=== PATIENT | male | born 1975 | race Caucasian/White ===

== ENCOUNTER 2017-02-21 13:32 | Emergency (ER) | payer BC, OTHER ==
[2017-02-21] MEDS ORDERED: SODIUM CHLORIDE 0.9% 500 ML IV STA (13:54)
--- NOTE | 2017-02-21 14:18 | ED ---
General Adult HPI - General Chief complaint: Dizziness Stated complaint: Dizziness Time Seen by Provider: 02/21/17 13:46 Source: patient, RN notes reviewed Mode of arrival: wheelchair Limitations: no limitations - History of Present Illness Initial comments: 41-year-old male presents emergency Department with chief complaint of dizziness. Patient states that he was looking at his phone in which she was standing up at the time. He states that at 11:55 AM this morning he became dizzy and felt lightheaded and had some visual changes. Patient states he sat down at this time and states that he initially felt better but symptoms have returned shortly after. Patient states that he felt that he just needed to eat and went to eat lunch and did not feel much better. Patient states his still feels weak all over and slightly off. Patient states that symptoms are worse with movement. Patient has no cardiac history. Patient states he has been told he had high blood pressure the past but no official diagnosis denies history of diabetes, hyperlipidemia. Patient is a former smoker. Patient states he has had some chest discomfort with also states she's been having left shoulder pain since recent started working out again. Patient states he did feel slightly different. - Related Data Previous Rx's Medication Instructions Recorded Meclizine [Antivert] 25 mg PO TID PRN #15 tab 02/21/17 Allergies Allergy/AdvReac Type Severity Reaction Status Date / Time iodine Allergy Rash/Hives Verified 02/21/17 14:04 latex Allergy Rash/Hives Verified 02/21/17 14:04 Review of Systems ROS Statement: Those systems with pertinent positive or pertinent negative responses have been documented in the HPI. ROS Other: All systems not noted in ROS Statement are negative. Past Medical History Past Medical History: No Reported History History of Any Multi-Drug Resistant Organisms: None Reported Additional Past Surgical History / Comment(s): Nasal surg., jaw surgery Past Psychological History: No Psychological Hx Reported Smoking Status: Former smoker Past Alcohol Use History: Occasional Past Drug Use History: None Reported General Exam Limitations: no limitations General appearance: alert, in no apparent distress Head exam: Present: atraumatic, normocephalic, normal inspection Eye exam: Present: normal appearance, PERRL, EOMI. Absent: scleral icterus, conjunctival injection, periorbital swelling ENT exam: Present: normal exam, normal oropharynx, mucous membranes moist, TM's normal bilaterally, normal external ear exam Neck exam: Present: normal inspection, full ROM. Absent: tenderness, meningismus, lymphadenopathy Respiratory exam: Present: normal lung sounds bilaterally. Absent: respiratory distress, wheezes, rales, rhonchi, stridor Cardiovascular Exam: Present: regular rate, normal rhythm, normal heart sounds. Absent: systolic murmur, diastolic murmur, rubs, gallop, clicks GI/Abdominal exam: Present: soft, normal bowel sounds. Absent: distended, tenderness, guarding, rebound, rigid Extremities exam: Present: normal inspection, full ROM, normal capillary refill. Absent: tenderness, pedal edema, joint swelling, calf tenderness Back exam: Present: full ROM, muscle spasm. Absent: tenderness, paraspinal tenderness, vertebral tenderness Neurological exam: Present: alert, oriented X3, CN II-XII intact, reflexes normal. Absent: motor sensory deficit Skin exam: Present: warm, dry, intact, normal color. Absent: rash Course Vital Signs 02/21/17 02/21/17 13:37 15:24 Temperature 98.0 F 97.7 F Pulse Rate 96 86 Respiratory 20 18 Rate Blood Pressure 130/84 133/82 O2 Sat by Pulse 100 100 Oximetry EKG Findings - EKG Comments: EKG Findings:: EKG performed at 13:51 normal sinus rhythm with rate of 78, LA 132, QRS duration 82, QTC is QTC 370/430 Medical Decision Making - Medical Decision Making 41-year-old male present emergency department with chief complaint of dizziness. Patient states she does feel much improved after some IV fluids. Patient's lab work didn't reveal mild elevation kidney function. Patient has no history of this. Patient's EKG, cardiac workup within normals. Patient states he is asymptomatic. Patient states will follow-up with primary care physician return parameters discussed. Patient be discharged with some Antivert if needed. - Lab Data Result diagrams: 02/21/17 14:12 02/21/17 14:12 Lab Results 02/21/17 02/21/17 02/21/17 Range/Units 14:12 14:12 14:12 WBC 9.1 (3.8-10.6) k/uL RBC 5.55 (4.30-5.90) m/uL Hgb 16.7 (13.0-17.5) gm/dL Hct 49.5 (39.0-53.0) % MCV 89.1 (80.0-100.0) fL MCH 30.1 (25.0-35.0) pg MCHC 33.8 (31.0-37.0) g/dL RDW 13.1 (11.5-15.5) % Plt Count 245 (150-450) k/uL Neutrophils % 72 % Lymphocytes % 20 % Monocytes % 4 % Eosinophils % 2 % Basophils % 0 % Neutrophils # 6.5 (1.3-7.7) k/uL Lymphocytes # 1.8 (1.0-4.8) k/uL Monocytes # 0.4 (0-1.0) k/uL Eosinophils # 0.2 (0-0.7) k/uL Basophils # 0.0 (0-0.2) k/uL PT 10.5 (9.0-12.0) sec INR 1.0 (<1.1) APTT 24.3 (22.0-30.0) sec Sodium 141 (137-145) mmol/L Potassium 3.9 (3.5-5.1) mmol/L Chloride 102 (98-107) mmol/L Carbon Dioxide 28 (22-30) mmol/L Anion Gap 11 mmol/L BUN 15 (9-20) mg/dL Creatinine 1.33 H (0.66-1.25) mg/dL Est GFR (MDRD) Af Amer >60 (>60 ml/min/1.73 sqM) Est GFR (MDRD) Non-Af 59 (>60 ml/min/1.73 sqM) Glucose 129 H (74-99) mg/dL Calcium 9.3 (8.4-10.2) mg/dL Total Bilirubin 0.6 (0.2-1.3) mg/dL AST 21 (17-59) U/L ALT 34 (21-72) U/L Alkaline Phosphatase 93 (38-126) U/L Troponin I (0.000-0.034) ng/mL Total Protein 7.8 (6.3-8.2) g/dL Albumin 4.3 (3.5-5.0) g/dL 02/21/17 Range/Units 14:12 WBC (3.8-10.6) k/uL RBC (4.30-5.90) m/uL Hgb (13.0-17.5) gm/dL Hct (39.0-53.0) % MCV (80.0-100.0) fL MCH (25.0-35.0) pg MCHC (31.0-37.0) g/dL RDW (11.5-15.5) % Plt Count (150-450) k/uL Neutrophils % % Lymphocytes % % Monocytes % % Eosinophils % % Basophils % % Neutrophils # (1.3-7.7) k/uL Lymphocytes # (1.0-4.8) k/uL Monocytes # (0-1.0) k/uL Eosinophils # (0-0.7) k/uL Basophils # (0-0.2) k/uL PT (9.0-12.0) sec INR (<1.1) APTT (22.0-30.0) sec Sodium (137-145) mmol/L Potassium (3.5-5.1) mmol/L Chloride (98-107) mmol/L Carbon Dioxide (22-30) mmol/L Anion Gap mmol/L BUN (9-20) mg/dL Creatinine (0.66-1.25) mg/dL Est GFR (MDRD) Af Amer (>60 ml/min/1.73 sqM) Est GFR (MDRD) Non-Af (>60 ml/min/1.73 sqM) Glucose (74-99) mg/dL Calcium (8.4-10.2) mg/dL Total Bilirubin (0.2-1.3) mg/dL AST (17-59) U/L ALT (21-72) U/L Alkaline Phosphatase (38-126) U/L Troponin I <0.012 (0.000-0.034) ng/mL Total Protein (6.3-8.2) g/dL Albumin (3.5-5.0) g/dL Disposition Clinical Impression: Dizziness Disposition: HOME SELF-CARE Condition: Stable Instructions: Dizziness (ED) Additional Instructions: Please return to the Emergency Department if symptoms worsen or any other concerns. Prescriptions: Meclizine [Antivert] 25 mg PO TID PRN #15 tab PRN Reason: Vertigo Time of Disposition: 15:38
[2017-02-21 14:32] LABS: Basophils % (A) 0 %; CH 31.2; CHCM 35.1; Eosinophils # (A) 0.2 k/uL (0-0.7); Eosinophils % (A) 2 %; HCT 49.5 % (39.0-53.0); HDW 2.52; HGB 16.7 gm/dL (13.0-17.5); Luc # (Auto) 0.16; Luc % (Auto) 2; Lymphocytes # (A) 1.8 k/uL (1.0-4.8); Lymphocytes % (A) 20 %; MCH 30.1 pg (25.0-35.0); MCHC 33.8 g/dL (31.0-37.0); MCV 89.1 fL (80.0-100.0); Mean Platelet Volume 7.1; Monocytes # (A) 0.4 k/uL (0-1.0); Monocytes % (A) 4 %; Neutrophils # (A) 6.5 k/uL (1.3-7.7); Neutrophils % (A) 72 %; RBC 5.55 m/uL (4.30-5.90); RDW 13.1 % (11.5-15.5); WBC 9.1 k/uL (3.8-10.6); WBC (Perox) 9.19
[2017-02-21 14:40] LABS: Partial Thromboplastin Time 24.3 sec (22.0-30.0); Prothrombin Time 10.5 sec (9.0-12.0)
[2017-02-21 14:44] LABS: ALT 34 U/L (21-72); AST 21 U/L (17-59); Alkaline Phosphatase 93 U/L (38-126); Anion Gap 11 mmol/L; Blood Urea Nitrogen 15 mg/dL (9-20); Calcium 9.3 mg/dL (8.4-10.2); Carbon Dioxide 28 mmol/L (22-30); Chloride 102 mmol/L (98-107); Glucose 129 mg/dL (74-99); Non-African American GFR(MDRD) 59 (>60 ml/min/1.73 sqM); Potassium 3.9 mmol/L (3.5-5.1); Sodium 141 mmol/L (137-145); Total Bilirubin 0.6 mg/dL (0.2-1.3); Total Protein 7.8 g/dL (6.3-8.2)
--- NOTE | 2017-02-21 15:10 | XR ---
EXAMINATION TYPE: XR chest 2V DATE OF EXAM: 02/21/2017 2:54 PM COMPARISON: 12/04/2015 HISTORY: Chest pain TECHNIQUE: Frontal and lateral views of the chest are obtained. FINDINGS: Heart and mediastinum are normal. Lungs are clear. Diaphragm is normal. There are chest le ads. Bony thorax is intact. IMPRESSION: Normal chest. No change.
[2017-02-21 15:29] VITALS: BP 133/82; PULSE 86; RESP 18; TEMP 97.7
== END 2017-02-21 15:55 | disposition home or self-care (01) ==
LOC: EC 13:32
DX: R42 Dizziness and giddiness (principal); R53.1 Weakness; R07.89 Other chest pain; Z91.040 Latex allergy status; Z88.8 Allergy status to other drugs, medicaments and biological substances; Z87.891 Personal history of nicotine dependence
CPT/HCPCS: 36415; 71020; 80053; 84484; 85025; 85610; 85730; 93005; 96360; 96361; 99284

== ENCOUNTER 2017-03-01 15:23 | Emergency (ER) | payer OTHER ==
[2017-03-01 15:44] VITALS: RESP 18
[2017-03-01] MEDS ORDERED: SODIUM CHLORIDE 0.9% 500 ML IV STA (16:37)
[2017-03-01] MEDS ORDERED: SODIUM CHLORIDE 0.9% 1,000 ML IV STA (16:37)
[2017-03-01 17:33] LABS: Basophils # (A) 0.1 k/uL (0-0.2); Basophils % (A) 1 %; CH 31.4; CHCM 35.1; Eosinophils # (A) 0.3 k/uL (0-0.7); Eosinophils % (A) 3 %; HCT 48.7 % (39.0-53.0); HDW 2.53; HGB 16.8 gm/dL (13.0-17.5); Luc # (Auto) 0.23; Luc % (Auto) 2; Lymphocytes # (A) 2.7 k/uL (1.0-4.8); Lymphocytes % (A) 25 %; MCHC 34.5 g/dL (31.0-37.0); MCV 89.7 fL (80.0-100.0); Monocytes # (A) 0.4 k/uL (0-1.0); Monocytes % (A) 4 %; Neutrophils # (A) 7.1 k/uL (1.3-7.7); Neutrophils % (A) 66 %; RBC 5.43 m/uL (4.30-5.90); RDW 13.2 % (11.5-15.5); WBC 10.8 k/uL (3.8-10.6); WBC (Perox) 11.09
[2017-03-01 17:42] LABS: ALT 32 U/L (21-72); AST 21 U/L (17-59); Alkaline Phosphatase 105 U/L (38-126); Anion Gap 12 mmol/L; Blood Urea Nitrogen 16 mg/dL (9-20); Calcium 9.5 mg/dL (8.4-10.2); Carbon Dioxide 23 mmol/L (22-30); Chloride 105 mmol/L (98-107); Glucose 100 mg/dL (74-99); Non-African American GFR(MDRD) >60 (>60 ml/min/1.73 sqM); Potassium 4.2 mmol/L (3.5-5.1); Sodium 140 mmol/L (137-145); Total Bilirubin 0.5 mg/dL (0.2-1.3); Total Protein 7.9 g/dL (6.3-8.2)
--- NOTE | 2017-03-01 17:50 | CT ---
EXAMINATION TYPE: CT brain wo con DATE OF EXAM: 03/01/2017 5:40 PM COMPARISON: NONE HISTORY: Head pressure and dizziness. CT DLP: 1090.40 mGycm Automated exposure control for dose reduction was used. FINDINGS: Ventricles and sulci appear normal. There is no mass effect nor midline shift. There is no sign of in tracranial hemorrhage. The calvarium is intact. IMPRESSION: Negative unenhanced head CT scan.
--- NOTE | 2017-03-01 18:41 | ED ---
General Adult HPI - General Chief complaint: Dizziness Stated complaint: DIZZINESS; PRESSURE IN HEAD; NECK STIFFNESS Time Seen by Provider: 03/01/17 16:16 Source: patient Mode of arrival: ambulatory Limitations: no limitations - Related Data Home Medications Medication Instructions Recorded Confirmed Omeprazole 20 mg PO DAILY PRN 03/01/17 03/01/17 Previous Rx's Medication Instructions Recorded Meclizine [Antivert] 25 mg PO TID PRN #15 tab 02/21/17 Allergies Allergy/AdvReac Type Severity Reaction Status Date / Time iodine Allergy Rash/Hives Verified 03/01/17 16:04 latex Allergy Rash/Hives Verified 03/01/17 16:04 Review of Systems ROS Statement: Those systems with pertinent positive or pertinent negative responses have been documented in the HPI. ROS Other: All systems not noted in ROS Statement are negative. Past Medical History Past Medical History: No Reported History History of Any Multi-Drug Resistant Organisms: None Reported Additional Past Surgical History / Comment(s): Nasal surg., jaw surgery Past Psychological History: No Psychological Hx Reported Smoking Status: Former smoker Past Alcohol Use History: Occasional Past Drug Use History: None Reported General Exam Limitations: no limitations Course Vital Signs 03/01/17 03/01/17 15:42 18:00 Temperature 97.5 F L 98.2 F Pulse Rate 109 H 88 Respiratory 18 18 Rate Blood Pressure 133/86 119/75 O2 Sat by Pulse 97 98 Oximetry EKG Findings - EKG Comments: EKG Findings:: EKG was done and reviewed at 1722 showing normal sinus rhythm. Rate 83 WI interval was 134 QRS 80 QT 3441. No evidence of any acute ST elevation no active ectopy no ischemic changes. Dr. Bills Medical Decision Making - Medical Decision Making Medical decision making the patient's white count 10.8 hemoglobin 16.8 hematocrit of 48.7. Potassium is 4.2. BUN 16 creatinine 1.08 GFR greater than 60. Glucose 100. CT of the brain was done and reviewed by radiologist his findings are ventricles and sulci appear normal. There is no mass effect nor midline shift. There is no sign of intracranial hemorrhage. The calvarium is intact. Impression negative unenhanced head computed tomography scan. As read by Dr. Garcia On reexamination the patient's feeling better no dizziness. No stiff neck headache. No nausea. Labs and CAT scan were reviewed with the patient. We did discuss side effects of having had the flu last week or mild dizziness and vertigo this week. Also being mildly tired because of the medications taken to control the dizziness. Meclizine. Patient will be discharged home vital signs stable alert and oriented neurologically intact. Advised to follow-up with family physician return emergency room as needed - Lab Data Result diagrams: 03/01/17 17:21 03/01/17 17:21 Lab Results 03/01/17 03/01/17 Range/Units 17:21 17:21 WBC 10.8 H (3.8-10.6) k/uL RBC 5.43 (4.30-5.90) m/uL Hgb 16.8 (13.0-17.5) gm/dL Hct 48.7 (39.0-53.0) % MCV 89.7 (80.0-100.0) fL MCH 31.0 (25.0-35.0) pg MCHC 34.5 (31.0-37.0) g/dL RDW 13.2 (11.5-15.5) % Plt Count 257 (150-450) k/uL Neutrophils % 66 % Lymphocytes % 25 % Monocytes % 4 % Eosinophils % 3 % Basophils % 1 % Neutrophils # 7.1 (1.3-7.7) k/uL Lymphocytes # 2.7 (1.0-4.8) k/uL Monocytes # 0.4 (0-1.0) k/uL Eosinophils # 0.3 (0-0.7) k/uL Basophils # 0.1 (0-0.2) k/uL Sodium 140 (137-145) mmol/L Potassium 4.2 (3.5-5.1) mmol/L Chloride 105 (98-107) mmol/L Carbon Dioxide 23 (22-30) mmol/L Anion Gap 12 mmol/L BUN 16 (9-20) mg/dL Creatinine 1.08 (0.66-1.25) mg/dL Est GFR (MDRD) Af Amer >60 (>60 ml/min/1.73 sqM) Est GFR (MDRD) Non-Af >60 (>60 ml/min/1.73 sqM) Glucose 100 H (74-99) mg/dL Calcium 9.5 (8.4-10.2) mg/dL Total Bilirubin 0.5 (0.2-1.3) mg/dL AST 21 (17-59) U/L ALT 32 (21-72) U/L Alkaline Phosphatase 105 (38-126) U/L Total Protein 7.9 (6.3-8.2) g/dL Albumin 4.3 (3.5-5.0) g/dL Disposition Clinical Impression: Vertigo Disposition: HOME SELF-CARE Condition: Stable Instructions: Dizziness (ED), Vertigo (ED) Additional Instructions: Stay hydrated,, continue with medications as directed follow with family physician return emergency room as needed. Time of Disposition: 19:21
[2017-03-01 19:37] VITALS: BP 119/91; PULSE 90; TEMP 98
== END 2017-03-01 19:36 | disposition home or self-care (01) ==
LOC: EC 15:23
DX: R42 Dizziness and giddiness (principal); Z91.040 Latex allergy status; Z91.048 Other nonmedicinal substance allergy status; Z87.891 Personal history of nicotine dependence
CPT/HCPCS: 36415; 70450; 80053; 85025; 93005; 96360; 96361; 99284

== ENCOUNTER 2019-10-05 10:54 | Day surgery (SDC) | payer OTHER ==
[2019-10-03 17:50] VITALS: BMI 28.3
[~2019-10-05 10:54] MED LIST: LACTATED RINGERS 1,000 ML IV SCH; LIDOCAINE 1% 20 ML VIAL (10MG/ML) FOR IV START INTRADERMA PRN
[2019-10-05 11:57] VITALS: TEMP 97.4
[2019-10-05] MEDS ORDERED: PROPOFOL 10 MG/ML 20 ML VIAL IV ONE (12:26)
--- NOTE | 2019-10-05 12:49 | P.PCN ---
Date of Procedure: 10/05/19 Procedure(s) Performed: Brief history: Patient is a pleasant 44-year-old white male scheduled for an elective upper endoscopy as well as colonoscopy as a part of evaluation of, pain, epigastric discomfort, intermittent dysphagia to solids and change in bowel habits for the last 8 years duration Procedure performed: Esophagogastroduodenoscopy with biopsy Colonoscopy with biopsy and snare polypectomy Preoperative diagnosis: ,Epigastric discomfort, intermittent dysphagia to solids Change in bowel habits Anesthesia: MAC Procedure: After informed consent was obtained from the patient was brought into the endoscopy unit and IV sedation was administered by anesthesia under continuous monitoring. Initially upper endoscopy was done. The Olympus GF 160 video endoscope was inserted inserted into the mouth and esophagus intubated without any difficulty and was gradually advanced into the stomach and duodenum and carefully examined. The bulb and second part of the duodenum appeared normal. The scope was then withdrawn into the stomach adequately insufflated with air and upon careful examination the antrum had mild gastritis and biopsies were done from this area. The body, cardia and fundus appeared normal. The scope was then withdrawn into the esophagus. The GE junction was located at 40 cm to the incisors. It appeared regular with 2 linear erosions consistent with LA grade B reflux esophagitis.. Rest of the esophagus appeared normal. Patient tolerated the procedure well. At this time the patient continued to remain sedation. Initial digital rectal examination was normal. Olympus CF 160 video colonoscope was then inserted into the rectum and gradually advanced to the cecum without any difficulty. Careful examination was performed as the scope was gradually being withdrawn. The prep was excellent. and melena was indicated that appeared normal. The cecum, ascen ding colon, transverse colon, descending colon, appeared normal. Random biopsies were done from the ascending and descending colon to rule out microscopic/collagenous colitis. The; there was a 5 mm polyp that was moved by snare polypectomy. In the mid rectum there was a 5 lmm polyp removed by snare polypectomy. Rest of the sigmoid colon and rectum appeared normal. Retroflexion was performed in the rectum and no lesions were noted. scattered sigmoid diverticulosis. Patient tolerated the procedure well. Impression: 1. Upper Endoscopy revealed erosions in the distal esophagus consistent with LA grade B reflux esophagitis and mild antral gastritis 2. Colonoscopy revealed a diminutive; polyp and 5 mm rectal polyp that was removed by snare polypectomy. Scattered sigmoid diverticulosis. Recommendations: Findings of this examination were discussed with the patient as well a his family. He was advised to follow with the biopsy results. He'll be seen in office in 2 weeks.
[2019-10-05 12:57] VITALS: RESP 16
[2019-10-05 13:25] VITALS: BP 122/78; PULSE 87
== END 2019-10-05 13:35 | disposition home or self-care (01) ==
LOC: ORWHC2ENDO 10:54
PROVIDERS: ATTEND Internal Medicine Gastroenterology
DX: K29.50 Unspecified chronic gastritis without bleeding (principal); A04.8 Other specified bacterial intestinal infections; K62.1 Rectal polyp; K63.5 Polyp of colon; K22.10 Ulcer of esophagus without bleeding; K57.30 Diverticulosis of large intestine without perforation or abscess without bleeding; I10 Essential (primary) hypertension; K21.9 Gastro-esophageal reflux disease without esophagitis; Z91.040 Latex allergy status; Z91.048 Other nonmedicinal substance allergy status; K59.00 Constipation, unspecified; Z87.891 Personal history of nicotine dependence; Z79.82 Long term (current) use of aspirin; Z79.899 Other long term (current) drug therapy; Z97.2 Presence of dental prosthetic device (complete) (partial)
CPT/HCPCS: 43239; 45385; 88305; 88342; J2704; 45380